=== PATIENT | female | born 1965 | race Two or more races ===

== ENCOUNTER 2022-05-10 07:11 | Emergency (ER) | payer OTHER ==
[~2022-05-10] VITALS: Ht 157.5 cm; Wt 68.0 kg
== END 2022-05-10 11:48 | disposition home or self-care (01) ==
LOC: ER 07:11
DX: R00.2 Palpitations (principal)

== ENCOUNTER 2023-08-26 08:36 | Outpatient (CLI) | payer OTHER ==
[2023-08-26 10:02] LABS: HEMATOCRIT 36.4 % (36.0-45.00); HEMOGLOBIN 12.9 g/dL (12.0-15.00); MEAN CELL VOLUME 89.3 fL (80.00-100.00); MEAN CORPUSCULAR HEMOGLOBIN 31.5 pg (27.00-32.0); MEAN CORPUSCULAR HGB CONC 35.3 g/dl (32.0-36.0); PLATELET COUNT 162 K/uL (150-450); RED BLOOD COUNT 4.08 M/uL (4.00-6.00); RED CELL DISTRIBUTION WIDTH 12.9 % (11.5-14.5)
[2023-08-26 10:04] LABS: PH,URINE 5.5 (5.0-8.0); URINE APPEARANCE Clear; URINE BILIRRUBIN Negative (NEGATIVE); URINE BLOOD Negative; URINE COLOR Yellow; URINE GLUCOSE Negative (NEGATIVE); URINE LEUKOCYTE Negative; URINE NITRATE Negative; URINE PROTEIN Negative (NEGATIVE); URINE UROBILINOGEN 0.2 E.U./dl
[2023-08-26 10:08] LABS: URINE BACTERIA 134.7 uL (0.0-1933); URINE EPITHELIAL CELLS 3.8 uL (0.0-38.8); URINE RBC 4.5 uL (0.0-20.8); URINE WBC 3.5 uL (0.0-23.2)
[2023-08-26 10:49] LABS: ALBUMIN 4.1 gm/dL (3.4-5.0); BILIRUBIN TOTAL 1.21 mg/dL (0.3-1.2); CALCIUM 9.5 mg/dL (8.5-10.1); CHOL HDL RATIO 2.7 (0-5.0); CREATININE SERUM 0.66 mg/dL (0.55-1.02); GFR 91.98; GLOBULINA 3.4 G/DL (2.4-3.5); POTASSIUM 4.11 mEq/L (3.5-5.1); TOTAL PROTEIN 7.5 gm/dL (6.4-8.2)
[2023-08-26 15:16] LABS: FREE TRIODOTIRONINE 2.42 pg/ml (2.18-3.98); T4 FREE 0.85 NG/ML (0.76-1.46); TSH 1.27 uIU/mL (0.358-3.74)
== END 2023-08-26 08:42 | disposition home or self-care (01) ==
LOC: LAB 08:36
PROVIDERS: ATTEND Obstetrics & Gynecology
DX: D64.9 Anemia, unspecified (principal); Z13.1 Encounter for screening for diabetes mellitus; E87.8 Other disorders of electrolyte and fluid balance, not elsewhere classified; N39.0 Urinary tract infection, site not specified; E03.9 Hypothyroidism, unspecified; Z13.220 Encounter for screening for lipoid disorders; E55.9 Vitamin D deficiency, unspecified; Z13.228 Encounter for screening for other metabolic disorders

== ENCOUNTER 2023-08-26 09:40 | Outpatient (CLI) | payer OTHER | END 2023-08-26 09:47 | disposition home or self-care (01) | LOC: MAMO-SONO 09:40 | PROVIDERS: ATTEND Obstetrics & Gynecology | DX: N60.11 Diffuse cystic mastopathy of right breast (principal); N60.12 Diffuse cystic mastopathy of left breast; Z12.39 Encounter for other screening for malignant neoplasm of breast; Z12.31 Encounter for screening mammogram for malignant neoplasm of breast ==

== ENCOUNTER 2023-09-18 13:30 | Outpatient (CLI) | payer OTHER | END 2023-09-18 13:31 | disposition home or self-care (01) | LOC: NUCLEAR 13:30 | PROVIDERS: ATTEND Obstetrics & Gynecology | DX: Z13.820 Encounter for screening for osteoporosis (principal); M81.0 Age-related osteoporosis without current pathological fracture ==

== ENCOUNTER → 2023-12-20 09:29 | Outpatient (CLI) | payer OTHER ==
[2023-12-20 10:39] LABS: URINE APPEARANCE Clear; URINE BILIRRUBIN Negative (NEGATIVE); URINE BLOOD Negative; URINE COLOR Yellow; URINE GLUCOSE Negative (NEGATIVE); URINE LEUKOCYTE Small; URINE NITRATE Negative; URINE PROTEIN Negative (NEGATIVE); URINE UROBILINOGEN 0.2 E.U./dl
[2023-12-20 10:44] LABS: URINE BACTERIA 808.8 uL (0.0-1933); URINE EPITHELIAL CELLS 9.8 uL (0.0-38.8); URINE RBC 5.3 uL (0.0-20.8); URINE WBC 56.3 uL (0.0-23.2)
[2023-12-20 10:44] LABS: HEMATOCRIT 36.2 % (36.0-45.00); HEMOGLOBIN 12.9 g/dL (12.0-15.00); MEAN CELL VOLUME 88.1 fL (80.00-100.00); MEAN CORPUSCULAR HEMOGLOBIN 31.2 pg (27.00-32.0); MEAN CORPUSCULAR HGB CONC 35.5 g/dl (32.0-36.0); PLATELET COUNT 183 K/uL (150-450); RED BLOOD COUNT 4.11 M/uL (4.00-6.00); RED CELL DISTRIBUTION WIDTH 13.4 % (11.5-14.5)
[2023-12-20 11:46] LABS: ALBUMIN 4.2 gm/dL (3.4-5.0); BILIRUBIN TOTAL 2.15 mg/dL (0.3-1.2); CALCIUM 9.5 mg/dL (8.5-10.1); CHOL HDL RATIO 2.4 (0-5.0); CREATININE SERUM 0.8 mg/dL (0.55-1.02); GFR 73.67; GLOBULINA 3.6 G/DL (2.4-3.5); POTASSIUM 3.98 mEq/L (3.5-5.1); T4 TOTAL 10.23 UG/DL (4.8-13.9); TOTAL PROTEIN 7.8 gm/dL (6.4-8.2); TSH 0.745 uIU/mL (0.358-3.74)
[2023-12-21 09:10] LABS: ESTRADIOL SERUM < 5.0 pg/mL (.); FOLLICLE STIMULATING HORMONE 80.8 mIU/mL (.); LEUTEINIZING HORMONE 46.8 mIU/mL (.)
== END | disposition home or self-care (01) ==
LOC: LAB 09:29
PROVIDERS: ATTEND Obstetrics & Gynecology
DX: D64.9 Anemia, unspecified (principal); E78.9 Disorder of lipoprotein metabolism, unspecified; E78.00 Pure hypercholesterolemia, unspecified; E78.2 Mixed hyperlipidemia; E06.0 Acute thyroiditis; N91.2 Amenorrhea, unspecified; Z12.11 Encounter for screening for malignant neoplasm of colon; E11.9 Type 2 diabetes mellitus without complications; E55.9 Vitamin D deficiency, unspecified; R97.1 Elevated cancer antigen 125 [CA 125]; N39.9 Disorder of urinary system, unspecified; N39.0 Urinary tract infection, site not specified; E13.21 Other specified diabetes mellitus with diabetic nephropathy; N95.1 Menopausal and female climacteric states; N95.9 Unspecified menopausal and perimenopausal disorder

== ENCOUNTER 2023-12-23 09:44 | Outpatient (CLI) | payer OTHER ==
[2023-12-23 11:20] LABS: ob NEGATIVE (NEGATIVE)
== END 2023-12-23 09:50 | disposition home or self-care (01) ==
LOC: LAB 09:44
DX: D64.9 Anemia, unspecified (principal); E78.9 Disorder of lipoprotein metabolism, unspecified; E78.2 Mixed hyperlipidemia; E78.00 Pure hypercholesterolemia, unspecified; E06.0 Acute thyroiditis; N91.2 Amenorrhea, unspecified; Z12.11 Encounter for screening for malignant neoplasm of colon; E11.9 Type 2 diabetes mellitus without complications; E55.9 Vitamin D deficiency, unspecified; R97.1 Elevated cancer antigen 125 [CA 125]; N39.9 Disorder of urinary system, unspecified; N39.0 Urinary tract infection, site not specified; E13.21 Other specified diabetes mellitus with diabetic nephropathy; N95.1 Menopausal and female climacteric states

== ENCOUNTER → 2024-04-13 08:12 | Outpatient (CLI) | payer OTHER ==
[2024-04-13 09:51] LABS: CHOL HDL RATIO 2.3 (0-5.0)
== END | disposition home or self-care (01) ==
LOC: LAB 08:12
DX: D64.9 Anemia, unspecified (principal); E78.9 Disorder of lipoprotein metabolism, unspecified; E78.2 Mixed hyperlipidemia; E78.00 Pure hypercholesterolemia, unspecified; E06.0 Acute thyroiditis; N91.2 Amenorrhea, unspecified; Z12.5 Encounter for screening for malignant neoplasm of prostate; Z12.11 Encounter for screening for malignant neoplasm of colon; E11.9 Type 2 diabetes mellitus without complications; E55.9 Vitamin D deficiency, unspecified; R97.1 Elevated cancer antigen 125 [CA 125]; N39.0 Urinary tract infection, site not specified; E13.21 Other specified diabetes mellitus with diabetic nephropathy

== ENCOUNTER 2024-10-25 10:45 | Emergency (ER) | payer OTHER ==
[~2024-10-25] VITALS: Ht 157.5 cm; Wt 67.1 kg
[2024-10-25] MEDS ORDERED: TOPROL XL25 M1 (11:11)
[2024-10-25 12:17] LABS: COVID-19 AG NEGATIVE (NEGATIVE); INFLUENZA A AG NEGATIVE (NEGATIVE)
== END 2024-10-25 12:29 | disposition home or self-care (01) ==
LOC: ER 10:50
PROVIDERS: General Practice
DX: B34.9 Viral infection, unspecified (principal); I10 Essential (primary) hypertension; Z20.822 Contact with and (suspected) exposure to COVID-19